=== PATIENT | female | born 1955 | race Two or more races ===

== ENCOUNTER → 2025-08-09 | Emergency (ER) | payer OTHER ==
[~2025-08-09] VITALS: Ht 160 cm; Wt 85.7 kg
[~2025-08-09] MED LIST: ACETAMINOPHEN 500 MG GEL..CAP PO ONE; CLEOCIN HCL300 MG PO; CLINDAMYCIN PHOSPHATE 150 MG/ML (600mg) IV ONE; DEXAMETHASONE SODIUM PHOSPHATE 4 MG/ML VIAL IM ONE; ESTAZOLAM2 MG PO; LOSARTAN-HCTZ1 EAC2 PO; PAXIL20 MG PO; PEPCID AC20 MG PO; PREVACID30 MG PO; SYNTHROID100 MCG PO
[2025-08-09 12:09] LABS: BASO % 1.1 % (0.1-1.2); EOS # 0.20 (0.04-0.54); EOS % 3.1 % (0.7-7.0); LYMPH # 2.02 (1.18-3.74); LYMPH % 31.2 % (19.3-53.1); MEAN PLATELET VOLUME 11.50 fl (9.4-12.4); MONO # 0.50 (0.24-0.82); MONO % 7.7 % (4.7-12.5); NEUT # 3.66 (1.56-6.13); NEUT % 56.6 % (34.0-71.1); RED CELL DISTRIBUTION WIDTH 14.3 % (11.6-14.4)
[2025-08-09 12:18] LABS: ERYTHROCYTE SEDIMENTATION RATE 32 mm/hr (0-30)
[2025-08-09 12:39] LABS: INR 0.99
[2025-08-09 12:42] LABS: ALT/SGPT 18.0 U/L (12-78); AST/SGOT 14.0 U/L (15-37); BILIRUBIN TOTAL 0.35 mg/dL (0.3-1.2); BUN CREA RATIO 19.0 (7.0-25.0); CREATININE SERUM 0.91 mg/dL (0.55-1.02); GFR 61.11; GLOBULINA 4.3 G/DL (2.4-3.5); GLUCOSE FASTING 108.0 mg/dL (65-100); OSMOLALITY SERUM 281.0 MOSM/KG (275-295)
== END | disposition home or self-care (01) ==
LOC: ER 08:30
DX: L02.31 Cutaneous abscess of buttock (principal); I10 Essential (primary) hypertension; E03.9 Hypothyroidism, unspecified; Z88.6 Allergy status to analgesic agent
CPT/HCPCS: 36415; 96365; 96372; 99282; J1100; J3490